=== PATIENT | female | born 1990 ===

== ENCOUNTER 2018-02-18 11:11 | Outpatient (CLI) | payer OTHER | END 2018-02-18 11:21 | disposition home or self-care (01) | LOC: LAB 11:11 | DX: D64.89 Other specified anemias (principal); N91.2 Amenorrhea, unspecified ==

== ENCOUNTER 2018-02-21 07:00 | Outpatient (CLI) | payer OTHER | END 2018-02-21 10:00 | disposition home or self-care (01) | LOC: LAB 07:00 | DX: O00.80 Other ectopic pregnancy without intrauterine pregnancy (principal); D64.89 Other specified anemias ==

== ENCOUNTER 2018-02-27 16:58 | Outpatient (CLI) | payer OTHER | END 2018-02-27 17:03 | disposition home or self-care (01) | LOC: LAB 16:58 | DX: N91.1 Secondary amenorrhea (principal); O02.1 Missed abortion; N94.89 Other specified conditions associated with female genital organs and menstrual cycle ==

== ENCOUNTER 2018-03-20 17:33 | Outpatient (CLI) | payer OTHER | END 2018-03-20 18:06 | disposition home or self-care (01) | LOC: LAB 17:33 | DX: N91.1 Secondary amenorrhea (principal); O02.1 Missed abortion; N94.89 Other specified conditions associated with female genital organs and menstrual cycle ==

== ENCOUNTER 2018-03-28 09:27 | Outpatient (CLI) | payer OTHER | END 2018-03-28 09:34 | disposition home or self-care (01) | LOC: LAB 09:27 | DX: Z12.11 Encounter for screening for malignant neoplasm of colon (principal); D64.89 Other specified anemias; E03.8 Other specified hypothyroidism; N95.1 Menopausal and female climacteric states; I10 Essential (primary) hypertension; C51.9 Malignant neoplasm of vulva, unspecified; N30.00 Acute cystitis without hematuria; E83.51 Hypocalcemia; A64 Unspecified sexually transmitted disease; R97.8 Other abnormal tumor markers ==